=== PATIENT | male | born 1950 | race Caucasian/White ===

== ENCOUNTER 2022-04-05 02:25 | Inpatient (IN) ==
[2022-04-05] MEDS ORDERED: Ipratropium/Albuterol Neb 3 ML IH ONE (02:38)
[2022-04-05 03:22] LABS: Basophils % 0.4 %; Eosinophils # 0.1 K/mcL (0.0-0.6); Eosinophils % 1.1 %; Hematocrit 34.7 % (37.5-50.1); Hemoglobin 11.4 g/dL (12.9-16.9); Immature Granulocytes % 1.1 % (0-4); Lymphocytes # 1.7 K/mcL (0.6-4.6); Lymphocytes % 18.5 %; Mean Corpuscular HGB Conc 32.9 g/dL (31.6-35.5); Mean Corpuscular Hemoglobin 29.3 pg (28.0-33.3); Mean Corpuscular Volume 89.2 fL (83.0-100.0); Mean Platelet Volume 9.1 fL (9.4-12.4); Monocytes # 0.5 K/mcL (0.0-1.3); Monocytes % 5.9 %; Neutrophils # 6.6 K/mcL (1.6-8.9); Platelet Count 356 K/mcL (140-400); Red Blood Count 3.89 M/mcL (4.19-5.50); Red Cell Distribution Width 13.9 % (11.5-14.5); White Blood Count 9.1 K/mcL (4.3-11.1)
[2022-04-05 03:36] LABS: Troponin I < 0.03 ng/mL (< 0.04)
[2022-04-05 03:47] LABS: Alanine Aminotransferase 13 Units/L (7-52); Alkaline Phosphatase 85 Units/L (34-104); Aspartate Amino Transferase 11 Units/L (13-39); BUN/Creatinine Ratio 20 (6-26); Bilirubin,Total 0.3 mg/dL (0.3-1.0); Blood Urea Nitrogen 23 mg/dL (8-23); Calcium 9.1 mg/dL (8.6-10.3); Carbon Dioxide 26 mEq/L (23-29); Chloride 103 mEq/L (98-107); Glucose 133 mg/dL (70-105); Osmolality,Calculated 292 (280-300); Potassium 4.1 mEq/L (3.5-5.1); Sodium 138 mEq/L (136-145); Total Protein 7.2 g/dL (6.4-8.9)
[2022-04-05 04:52] LABS: Albumin 4.1 g/dL (3.5-5.7); Albumin/Globulin Ratio 1.3 (1.1-2.2); Bilirubin,Indirect 0.3 mg/dL (0.0-1.0); Globulin 3.1 g/dL (2.4-3.5)
[2022-04-05] MEDS ORDERED: Piperacillin/Tazobactam 3.375 GM in 0.9 % Sodium Chloride Mini Bag 100 ML IVPB ONE (05:48)
[2022-04-05] MEDS ORDERED: Vancomycin 1,000 MG, Vancomycin 500 MG in 0.9 % Sodium Chloride 250 ML IVPB ONE (06:00)
[2022-04-05] MEDS ORDERED: Naloxone 0.4 MG/ML INJ IVP PRN (07:46)
[2022-04-05] MEDS ORDERED: Ondansetron 4 MG/2 ML VIAL IVP PRN (07:46)
[2022-04-05] MEDS ORDERED: Acetaminophen 325 MG TABLET PO PRN (07:46)
[2022-04-05 08:12] LABS: Basophils % 0.5 %; Eosinophils # 0.1 K/mcL (0.0-0.6); Eosinophils % 0.7 %; Hematocrit 30.8 % (37.5-50.1); Hemoglobin 9.9 g/dL (12.9-16.9); Lymphocytes # 1.3 K/mcL (0.6-4.6); Lymphocytes % 14.6 %; Mean Corpuscular HGB Conc 32.1 g/dL (31.6-35.5); Mean Corpuscular Hemoglobin 28.9 pg (28.0-33.3); Mean Corpuscular Volume 90.1 fL (83.0-100.0); Mean Platelet Volume 8.7 fL (9.4-12.4); Monocytes # 0.4 K/mcL (0.0-1.3); Monocytes % 4.4 %; Neutrophils # 6.8 K/mcL (1.6-8.9); Platelet Count 291 K/mcL (140-400); Red Blood Count 3.42 M/mcL (4.19-5.50); Red Cell Distribution Width 13.7 % (11.5-14.5); Segmented Neutrophils % 78.8 %; White Blood Count 8.7 K/mcL (4.3-11.1)
[2022-04-05] MEDS ORDERED: Ipratropium/Albuterol Neb 3 ML ONE (08:13)
[2022-04-05] MEDS: Budesonide/Formoterol 160/4.5 1 PUFF INH IH SCH ×2 (08:34→22:14)
[2022-04-05 08:38] LABS: INR 1.4; Prothrombin Time 15.2 Seconds (9.4-12.1)
[2022-04-05 08:40] LABS: Activated Partial Thrombo Time 38.9 Seconds (26.0-36.0)
[2022-04-05 08:48] LABS: Albumin 3.4 g/dL (3.5-5.7); Albumin/Globulin Ratio 1.3 (1.1-2.2); Bilirubin,Total 0.3 mg/dL (0.3-1.0); Calcium 8.4 mg/dL (8.6-10.3); Globulin 2.6 g/dL (2.4-3.5); Magnesium 1.8 mg/dL (1.6-2.6); Phosphorous 3.1 mg/dL (2.7-4.5); Potassium 3.9 mEq/L (3.5-5.1)
[2022-04-05] MEDS ORDERED: Furosemide 20 MG/2 ML VIAL IVP ONE ×2 (08:49→15:56)
[2022-04-05] MEDS ORDERED: Ipratropium/Albuterol Neb 3 ML IH SCH (10:00)
[2022-04-05] MEDS ORDERED: traZODone 50 MG TABLET PO PRN (13:42)
[2022-04-05] MEDS ORDERED: Dextrose Gel 15 GM/37.5 ML TUBE PO PRN ×2 (13:48)
[2022-04-05] MEDS ORDERED: *HR* Dextrose 50 % in Water (Syg) 50 ML SYRINGE IVP PRN (13:48)
[2022-04-05] MEDS ORDERED: D5% in Water 1,000 ML IVC PRN (13:48)
[2022-04-05] MEDS: Lactobacillus 1 EACH CAP.SPRINK PO SCH ×2 (13:58→21:34)
[2022-04-05] MEDS: Vancomycin 1,250 MG/262.5 ML IV.SOLN IVPB SCH (13:58)
[2022-04-05] MEDS: Chlorhexidine Rinse 15 ML MOUTHWASH MM SCH ×2 (13:59→21:33)
[2022-04-05] MEDS: ARIPiprazole 10 MG TABLET PO SCH (14:36)
[2022-04-05] MEDS: Ipratropium/Albuterol Neb 3 ML IH PRN (14:47)
[2022-04-05] MEDS: Piperacillin/Tazobactam 3.375 GM in 0.9 % Sodium Chloride Mini Bag 100 ML IVPB SCH ×2 (14:54→21:35)
[2022-04-05] MEDS: Insulin LISPRO 300 UNITS/3 ML VIAL SUBQ SCH ×2 (16:33→21:08)
[2022-04-05] MEDS: Artificial Tears SOLN 15 ML BOTTLE RIGHT EYE SCH ×2 (16:34→23:23)
[2022-04-05] MEDS ORDERED: NON-FORMULARY MEDICATION 1 EACH EACH (Pantoprazole Sodium 40 MG Tablet.Dr) PO SCH (21:00)
[2022-04-05] MEDS: Apixaban 5 MG TABLET PO SCH (21:34)
[2022-04-05] MEDS: Metoprolol XL (24 HR) Succ 50 MG TAB.ER.24H PO SCH (21:34)
[2022-04-05] MEDS: Ketorolac OPTH Soln 5 ML BOTTLE RIGHT EYE SCH (23:24)
[2022-04-06] MEDS: Vancomycin 1,250 MG/262.5 ML IV.SOLN IVPB SCH ×2 (02:02→13:27)
[2022-04-06] MEDS: Ipratropium/Albuterol Neb 3 ML IH PRN ×4 (03:49→22:11)
[2022-04-06] MEDS: Piperacillin/Tazobactam 3.375 GM in 0.9 % Sodium Chloride Mini Bag 100 ML IVPB SCH ×3 (07:02→23:47)
[2022-04-06] MEDS: DilTIAZem CD (24hr) 180 MG CAP.ER.24H PO SCH (07:02)
[2022-04-06] MEDS: Metoprolol XL (24 HR) Succ 50 MG TAB.ER.24H PO SCH ×2 (07:02→20:03)
[2022-04-06 08:22] LABS: Basophils % 0.5 %; Eosinophils # 0.1 K/mcL (0.0-0.6); Eosinophils % 1.1 %; Hematocrit 33.7 % (37.5-50.1); Hemoglobin 10.7 g/dL (12.9-16.9); Immature Granulocytes % 0.8 % (0-4); Lymphocytes # 1.5 K/mcL (0.6-4.6); Lymphocytes % 17.4 %; Mean Corpuscular HGB Conc 31.8 g/dL (31.6-35.5); Mean Corpuscular Hemoglobin 28.5 pg (28.0-33.3); Mean Corpuscular Volume 89.9 fL (83.0-100.0); Mean Platelet Volume 8.9 fL (9.4-12.4); Monocytes # 0.5 K/mcL (0.0-1.3); Monocytes % 6.2 %; Neutrophils # 6.4 K/mcL (1.6-8.9); Platelet Count 332 K/mcL (140-400); Red Blood Count 3.75 M/mcL (4.19-5.50); Red Cell Distribution Width 13.7 % (11.5-14.5); White Blood Count 8.7 K/mcL (4.3-11.1)
[2022-04-06 08:38] LABS: Calcium 8.9 mg/dL (8.6-10.3); Magnesium 1.9 mg/dL (1.6-2.6); Potassium 4.3 mEq/L (3.5-5.1)
[2022-04-06] MEDS ORDERED: GLIPIZIDE 5 MG PO SCH (09:00)
[2022-04-06] MEDS ORDERED: DilTIAZem CD (24hr) 180 MG CAP.ER.24H PO SCH (09:00)
[2022-04-06] MEDS: Lactobacillus 1 EACH CAP.SPRINK PO SCH ×2 (09:17→20:05)
[2022-04-06] MEDS: ARIPiprazole 10 MG TABLET PO SCH (09:17)
[2022-04-06] MEDS: Apixaban 5 MG TABLET PO SCH ×2 (09:18→20:04)
[2022-04-06] MEDS: Chlorhexidine Rinse 15 ML MOUTHWASH MM SCH ×2 (09:25→20:05)
[2022-04-06] MEDS: Budesonide/Formoterol 160/4.5 1 PUFF INH IH SCH ×2 (09:43→22:10)
[2022-04-06] MEDS: Ketorolac OPTH Soln 5 ML BOTTLE RIGHT EYE SCH ×2 (12:19→20:05)
[2022-04-06] MEDS: Artificial Tears SOLN 15 ML BOTTLE RIGHT EYE SCH ×4 (12:19→20:05)
[2022-04-06] MEDS: Insulin LISPRO 300 UNITS/3 ML VIAL SUBQ SCH ×3 (12:20→20:06)
[2022-04-06] MEDS: Melatonin 3 MG TABLET PO PRN (20:04)
[2022-04-07] MEDS: Vancomycin 1,250 MG/262.5 ML IV.SOLN IVPB SCH (01:32)
[2022-04-07] MEDS: Piperacillin/Tazobactam 3.375 GM in 0.9 % Sodium Chloride Mini Bag 100 ML IVPB SCH (05:13)
[2022-04-07 08:05] LABS: Basophils % 0.5 %; Eosinophils # 0.1 K/mcL (0.0-0.6); Eosinophils % 1.6 %; Immature Granulocytes % 0.5 % (0-4); Lymphocytes # 1.4 K/mcL (0.6-4.6); Lymphocytes % 18.8 %; Mean Corpuscular HGB Conc 32.3 g/dL (31.6-35.5); Mean Corpuscular Volume 89.9 fL (83.0-100.0); Mean Platelet Volume 9.3 fL (9.4-12.4); Monocytes # 0.5 K/mcL (0.0-1.3); Monocytes % 6.1 %; Neutrophils # 5.6 K/mcL (1.6-8.9); Platelet Count 329 K/mcL (140-400); Red Blood Count 3.45 M/mcL (4.19-5.50); Red Cell Distribution Width 13.8 % (11.5-14.5); Segmented Neutrophils % 72.5 %; White Blood Count 7.7 K/mcL (4.3-11.1)
[2022-04-07 08:18] LABS: Calcium 8.7 mg/dL (8.6-10.3); Magnesium 1.9 mg/dL (1.6-2.6)
[2022-04-07] MEDS: Budesonide/Formoterol 160/4.5 1 PUFF INH IH SCH ×2 (08:21→20:38)
[2022-04-07] MEDS: Ketorolac OPTH Soln 5 ML BOTTLE RIGHT EYE SCH ×2 (11:06→21:13)
[2022-04-07] MEDS: Metoprolol XL (24 HR) Succ 50 MG TAB.ER.24H PO SCH ×2 (11:06→21:11)
[2022-04-07] MEDS: Chlorhexidine Rinse 15 ML MOUTHWASH MM SCH ×2 (11:06→21:11)
[2022-04-07] MEDS: Lactobacillus 1 EACH CAP.SPRINK PO SCH ×2 (11:06→21:09)
[2022-04-07] MEDS: DilTIAZem CD (24hr) 180 MG CAP.ER.24H PO SCH (11:06)
[2022-04-07] MEDS: Artificial Tears SOLN 15 ML BOTTLE RIGHT EYE SCH ×4 (11:06→21:13)
[2022-04-07] MEDS: Apixaban 5 MG TABLET PO SCH ×2 (11:06→21:10)
[2022-04-07] MEDS: ARIPiprazole 10 MG TABLET PO SCH (11:06)
[2022-04-07] MEDS: Insulin LISPRO 300 UNITS/3 ML VIAL SUBQ SCH ×4 (11:20→21:18)
[2022-04-07] MEDS ORDERED: traZODone 50 MG TABLET PO PRN (17:44)
[2022-04-07] MEDS: Doxycycline 100 MG CAPSULE PO SCH (21:10)
[2022-04-07] MEDS: Melatonin 3 MG TABLET PO PRN (21:10)
[2022-04-08 07:55] LABS: Basophils % 0.5 %; Eosinophils # 0.1 K/mcL (0.0-0.6); Eosinophils % 1.5 %; Hematocrit 35.5 % (37.5-50.1); Hemoglobin 11.1 g/dL (12.9-16.9); Immature Granulocytes % 0.5 % (0-4); Lymphocytes # 1.7 K/mcL (0.6-4.6); Lymphocytes % 20.5 %; Mean Corpuscular HGB Conc 31.3 g/dL (31.6-35.5); Mean Corpuscular Hemoglobin 28.2 pg (28.0-33.3); Mean Corpuscular Volume 90.3 fL (83.0-100.0); Mean Platelet Volume 9.1 fL (9.4-12.4); Monocytes # 0.5 K/mcL (0.0-1.3); Monocytes % 5.8 %; Neutrophils # 5.7 K/mcL (1.6-8.9); Platelet Count 342 K/mcL (140-400); Red Blood Count 3.93 M/mcL (4.19-5.50); Red Cell Distribution Width 13.8 % (11.5-14.5); Segmented Neutrophils % 71.2 %; White Blood Count 8.1 K/mcL (4.3-11.1)
[2022-04-08 08:09] VITALS: BP 164/97; PULSE 96; RESP 18; TEMP 97.4; O2SAT 95
[2022-04-08 08:21] LABS: Calcium 9.3 mg/dL (8.6-10.3); Potassium 4.3 mEq/L (3.5-5.1)
[2022-04-08] MEDS: Budesonide/Formoterol 160/4.5 1 PUFF INH IH SCH (09:34)
[2022-04-08] MEDS: Doxycycline 100 MG CAPSULE PO SCH (09:54)
[2022-04-08] MEDS: ARIPiprazole 10 MG TABLET PO SCH (09:54)
[2022-04-08] MEDS: Chlorhexidine Rinse 15 ML MOUTHWASH MM SCH (09:54)
[2022-04-08] MEDS: DilTIAZem CD (24hr) 180 MG CAP.ER.24H PO SCH (09:54)
[2022-04-08] MEDS: Lactobacillus 1 EACH CAP.SPRINK PO SCH (09:54)
[2022-04-08] MEDS: Metoprolol XL (24 HR) Succ 50 MG TAB.ER.24H PO SCH (09:55)
[2022-04-08] MEDS: Apixaban 5 MG TABLET PO SCH (09:55)
[2022-04-08] MEDS: Insulin LISPRO 300 UNITS/3 ML VIAL SUBQ SCH (09:56)
[2022-04-08] MEDS: Ketorolac OPTH Soln 5 ML BOTTLE RIGHT EYE SCH (10:01)
[2022-04-08] MEDS: Artificial Tears SOLN 15 ML BOTTLE RIGHT EYE SCH (10:02)
== END 2022-04-08 11:09 | disposition home or self-care (01) | DRG 194 ==
LOC: INPPIK 02:25 → EMEROOPIK 02:25 → SUATTDRO 06:11 → INPPIK 06:43
PROVIDERS: ADMIT Internal Medicine; ATTEND Internal Medicine